=== PATIENT | female | born 1950 | race Caucasian/White ===

== ENCOUNTER 2017-02-01 10:30 | Observation (INO) | payer MEDICARE, OTHER ==
[~2017-02-01] VITALS: Ht 172.7 cm; Wt 129.8 kg
[~2017-02-01 10:30] MED LIST: ALPR1T PO; BUME2TAB3; CHOL50003; DULA0.75 SQ; EXEN10PE4; FLUO60TA PO; GLIM2TAB; GLIM4TAB PO; INSU100I29 SQ; KCL10CCR; LEVO175T5 PO; LEVO1CAP11 PO; LOSA100T16; LOSA1TAB70 PO; LVT.15T; MELO-195; NF-ESOM40C; PIOG1TAB2; VALA1000 PO; VNL75CCR; ZLP10T PO
[2017-02-01] MEDS ORDERED: ASPIRIN 81 MG CHEW (CHILDREN'S ASA) PO ONE (10:45)
--- NOTE | 2017-02-01 10:48 | ED Chest Pain ---
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 Nursing Sepsis Screen: No Definite Risk Source: patient History of Present Illness Time seen by provider: 10:30 Initial Comments PT ARRIVES VIA POV FROM WORK C/O "CHEST PAIN" WHICH BEGAN 15 MINUTES AGO WHILE SITTING AT WORK, AND IS DECREASING ON ARRIVAL TO ER PAIN IS IN RIGHT MID AND LOWER CHEST AND EPIGASTRIC/LOWER STERNAL AREA AND RADIATES STRAIGHT THROUGH TO BACK AND ANTERIOR NECK AND BOTH JAWS WITH SEVERE ACHING NO SHORTNESS OF BREATH NO SWEATS NO PALPITATIONS NO SWELLING IN LEGS/ FEET OR PAIN IN CALVES HAS BEEN A LITTLE DIZZY FOR THE LAST COUPLE OF DAYS NO HISTORY OF SIMILAR PT HAD SURGERY 2 WEEKS AGO TO HAVE LAP BAND REMOVED BY DR. SNYDER IN PCP: DR. CRESPO Allergies and Home Medications Allergies Coded Allergies: amoxicillin (Verified Adverse Reaction, Unknown, 05/11/16) GIVES DIARRHEA Home Medications Dulaglutide 0.75 Mg/0.5 Ml Pen.injctr, 0.75 MG SQ WEEK, (Reported) take on Monday Fluoxetine HCl 60 Mg Tablet, 60 MG PO DAILY, (Reported) Glimepiride 4 Mg Tablet, 4 MG PO DAILY, (Reported) Insulin Detemir 100 Unit/1 Ml Insuln.pen, 70 UNIT SQ BID, (Reported) Levomefolate/B6/B12/Algal Oil 1 Each Capsule, 1 EACH PO BID, (Reported) Levothyroxine Sodium 175 Mcg Tablet, 175 MCG PO DAILY, (Reported) Losartan/Hydrochlorothiazide 1 Each Tablet, 1 EACH PO DAILY, (Reported) Valacyclovir HCl 1,000 Mg Tablet, 1,000 MG PO TIDAC, (Reported) take for 7 days Zolpidem Tartrate 10 Mg Tablet, 10 MG PO HS, (Reported) Review of Systems Constitutional: no symptoms reported Respiratory: No Symptoms Reported Cardiovascular: See HPI, Chest Pain Gastrointestinal: See HPI, Denies Nausea, Denies Vomiting Genitourinary: No Symptoms Reported Musculoskeletal: see HPI, back pain Skin: no symptoms reported Psychiatric/Neurological: No Symptoms Reported Endocrine: No Symptoms Reported Hematologic/Lymphatic: No Symptoms Reported Past Sdgajfn-Rdxvdx-Qtmytb Hx Patient Social History Alcohol Use: Occasionally Uses Recreational Drug Use: No Smoking Status: Former Smoker (1/2 PPD, QUIT 25 YEARS AGO) Recent Foreign Travel: No Contact w/Someone Who Travel: No Recent Infectious Disease Expo: No Recent Hopitalizations: Yes (LAP BAND REMOVAL X2 WEEKS AGO) Immunizations Up To Date Date of Influenza Vaccine: Jul 26, 2011 Surgeries HX Surgeries: Yes (D&C, LAP BAND WITH LATER REMOVAL 12/2016, BIILATERAL CARPAL TUNNEL RELEASE; FOOT SURGERY; HYST /BSO, foot sx, ) Surgeries: Gallbladder, Hysterectomy, Oophorectomy Respiratory Hx Respiratory Disorders: No Cardiovascular Hx Cardiac Disorders: Yes Cardiac Disorders: Hypertension Neurological Hx Neurological Disorders: Yes Neurological Disorders: Neuropathy Reproductive System Hx Reproductive Disorders: Yes (UTERINE CANCER -S/P HYST/BSO) Sexually Transmitted Disease: No Genitourinary Hx Genitourinary Disorders: No Gastrointestinal Hx Gastrointestinal Disorders: No Musculoskeletal Hx Musculoskeletal Disorders: Yes (arthritis, neuropathy) Endocrine Hx Endocrine Disorders: Yes Endocrine Disorders: Diabetes, Insulin dep, Hypothyroidsim HEENT HX ENT Disorders: No Cancer Hx Cancer: Yes (UTERINE CANCER 15 YEARS AGO--S/P HYST/BSO, NO CHEMO OR RADIATION) Cancer: Uterine Psychosocial Hx Psychiatric Problems: Yes Behavioral Health Disorders: Anxiety, Depression Blood Transfusions Hx Blood Disorders: No Physical Exam Vital Signs Vital Sign - Last 12Hours 02/01/17 10:36 Temp 98.0 Pulse 93 Resp 16 B/P (MAP) 144/62 Pulse Ox 99 Capillary Refill : Less Than 3 Seconds General Appearance: No Apparent Distress, WD/WN, Obese HEENT: PERRL/EOMI Neck: Full Range of Motion, Normal Inspection, Non Tender, Supple, No Carotid Bruit, No JVD Respiratory: Normal Breath Sounds, No Accessory Muscle Use, No Respiratory Distress Cardiovascular: Regular Rate, Rhythm, No Edema, No JVD, No Murmur, Normal Peripheral Pulses Gastrointestinal: Normal Bowel Sounds, No Organomegaly, No Pulsatile Mass, Soft , Mass (TO RIGHT MID/UPPER ABDOMEN-MILDLY TENDER), Tenderness (MILD EPIGASTRIC/ LOWER STERNAL TENDERNESS) Extremity: Normal Capillary Refill, Normal Range of Motion, Non Tender, No Calf Tenderness, No Pedal Edema Neurologic/Psychiatric: Alert, Oriented x3, No Motor/Sensory Deficits, Normal 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, 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 Skin: Normal Color, Warm/Dry, Other (FIRST DEGREE SUNBURN TO ANTERIOR ASPECT OF LOWER LEGS, TO UPPER CHEST AND TO FACE) Progress/Results/Core Measures Results/Orders Lab Results Laboratory Tests Test 02/01/17 10:51 Range/Units White Blood Count 10.8 4.3-11.0 10^3/uL Red Blood Count 4.37 4.35-5.85 10^6/uL Hemoglobin 12.8 11.5-16.0 G/DL Hematocrit 39 35-52 % Mean Corpuscular Volume 90 80-99 FL Mean Corpuscular Hemoglobin 29 25-34 PG Mean Corpuscular Hemoglobin Concent 33 32-36 G/DL Red Cell Distribution Width 15.6 H 10.0-14.5 % Platelet Count 358 130-400 10^3/uL Mean Platelet Volume 10.4 7.4-10.4 FL Neutrophils (%) (Auto) 69 42-75 % Lymphocytes (%) (Auto) 20 12-44 % Monocytes (%) (Auto) 6 0-12 % Eosinophils (%) (Auto) 4 0-10 % Basophils (%) (Auto) 1 0-10 % Neutrophils # (Auto) 7.4 1.8-7.8 X 10^3 Lymphocytes # (Auto) 2.2 1.0-4.0 X 10^3 Monocytes # (Auto) 0.6 0.0-1.0 X 10^3 Eosinophils # (Auto) 0.5 H 0.0-0.3 10^3/uL Basophils # (Auto) 0.1 0.0-0.1 10^3/uL Prothrombin Time 13.3 12.2-14.7 SEC INR Comment 1.0 0.8-1.4 Activated Partial Thromboplast Time 26 24-35 SEC Sodium Level 140 135-145 MMOL/L Potassium Level 3.5 L 3.6-5.0 MMOL/L Chloride Level 105 98-107 MMOL/L Carbon Dioxide Level 26 21-32 MMOL/L Anion Gap 9 5-14 MMOL/L Blood Urea Nitrogen 14 7-18 MG/DL Creatinine 1.00 0.60-1.30 MG/DL Estimat Glomerular Filtration Rate 55 BUN/Creatinine Ratio 14 Glucose Level 254 H 70-105 MG/DL Calcium Level 8.8 8.5-10.1 MG/DL Magnesium Level 2.1 1.8-2.4 MG/DL Total Bilirubin 0.4 0.1-1.0 MG/DL Aspartate Amino Transf (AST/SGOT) 19 5-34 U/L Alanine Aminotransferase (ALT/SGPT) 23 0-55 U/L Alkaline Phosphatase 102 40-136 U/L Total Creatine Kinase 98 29-168 U/L Creatine Kinase MB 3.0 <6.6 NG/ML Troponin I < 0.30 <0.30 NG/ML B-Type Natriuretic Peptide < 10.0 <100.0 PG/ML Total Protein 6.9 6.4-8.2 G/DL Albumin 3.6 3.2-4.5 G/DL Amylase Level 33 25-125 U/L Lipase 22 8-78 U/L My Orders Orders - DEMETRIS ERICKSON DO Amylase (02/01/17 10:33) Cbc With Automated Diff (02/01/17 10:33) Comprehensive Metabolic Panel (02/01/17 10:33) Creatine Kinase (02/01/17 10:33) Creatine Kinase Mb (02/01/17 10:33) Lipase (02/01/17 10:33) Partial Thromboplastin Time (02/01/17 10:33) Protime With Inr (02/01/17 10:33) Troponin I (02/01/17 10:33) Chest 1 View, Ap/Pa Only (02/01/17 10:33) O2 (02/01/17 10:33) Ekg Tracing (02/01/17 10:33) Aspirin Chewable Tablet (Baby Aspirin Ch (02/01/17 10:45) Rx-Nitroglycerin Sl Tabs (Rx-Nitrostat S (02/01/17 10:45) BNP (02/01/17 10:33) Monitor-Rhythm Ecg Trace Only (02/01/17 10:33) Magnesium (02/01/17 10:41) Ct Angio Chest W (02/01/17 11:36) Iohexol Injection (Omnipaque 350 Mg/Ml 1 (02/01/17 11:45) Sodium Chloride Flush (Catheter Flush Sy (02/01/17 11:45) Ns (Ivpb) (Sodium Chloride 0.9% Ivpb Bag (02/01/17 11:45) Medications Given in ED Current Medications Medications Dose Ordered Sig/Claire Route Start Time Stop Time Status Last Admin Dose Admin Aspirin 324 mg ONCE ONCE PO 02/01/17 10:45 02/01/17 10:46 DC 02/01/17 10:50 324 MG Iohexol 125 ml ONCE ONCE IV 02/01/17 11:45 02/01/17 11:47 DC 02/01/17 11:53 125 ML Sodium Chloride 100 ml ONCE ONCE IV 02/01/17 11:45 02/01/17 11:47 DC 02/01/17 11:54 80 ML Vital Signs/I&O Vital Sign - Last 12Hours 02/01/17 10:36 Temp 98.0 Pulse 93 Resp 16 B/P (MAP) 144/62 Pulse Ox 99 Blood Pressure Mean: 89 Progress Note : Progress Note PAIN-FREE SHORTLY AFTER ARRIVAL REMAINED PAIN -FREE FOR 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 OR ACUTE PROCESS--PER RADIOLOGIST REPORT @ 1245 Reviewed: Reviewed by Me Departure Communication Progress Notes 1252--SPOKE WITH DR. NOVOA, ACCEPTS PT FOR ADMIT 1254--SPOKE WITH DR. CANELA, FOR CARDIOLOGY CONSULT. ADVISES [facility]. Impression Impression: Primary Impression: Chest pain Disposition: ADMITTED INPATIENT Condition: Improved Decision to Admit Reason: Admit from ER (General) Decision to Admit/Date: February 01, 2017 Time/Decision to Admit Time: 12:55 Departure-Patient Inst. Referrals: INDIRA CRESPO MD (PCP/Family) Primary Care Physician DEMETRIS ERICKSON DO February 01, 2017 10:48
[2017-02-01] MEDS: RX-NITROGLYCERIN 0.4 MG TAB BTL 25'S SL PRN ×2 (10:56→13:16)
[2017-02-01 11:00] LABS: BASOPHILS # (AUTO) 0.1 10^3/uL (0.0-0.1); BASOPHILS % (AUTO) 1 % (0-10); EOSINOPHILS # (AUTO) 0.5 10^3/uL (0.0-0.3); EOSINOPHILS % (AUTO) 4 % (0-10); LYMPHOCYTES # (AUTO) 2.2 X 10^3 (1.0-4.0); LYMPHOCYTES % (AUTO) 20 % (12-44); MEAN CORPUSCULAR HEMOGLOBIN 29 PG (25-34); MEAN CORPUSCULAR HGB CONC 33 G/DL (32-36); MEAN CORPUSCULAR VOLUME 90 FL (80-99); MEAN PLATELET VOLUME 10.4 FL (7.4-10.4); MONOCYTES # (AUTO) 0.6 X 10^3 (0.0-1.0); MONOCYTES % (AUTO) 6 % (0-12); NEUTROPHILS # (AUTO) 7.4 X 10^3 (1.8-7.8); NEUTROPHILS % (AUTO) 69 % (42-75); PLATELET COUNT 358 10^3/uL (130-400); RED BLOOD COUNT 4.37 10^6/uL (4.35-5.85); RED CELL DISTRIBUTION WIDTH 15.6 % (10.0-14.5); WHITE BLOOD COUNT 10.8 10^3/uL (4.3-11.0)
--- NOTE | 2017-02-01 11:08 | Diagnostic Imaging Report ---
EXAMINATION: Portable upright radiograph of the chest. INDICATION: Chest pain and dizziness. FINDINGS: The lungs are clear. The heart size is normal. No effusion or pneumothorax. The mediastinum and gregorio appear unremarkable. IMPRESSION: Unremarkable exam. Dictated by: Dictated on workstation # [id number]
[2017-02-01 11:14] LABS: PROTHROMBIN TIME PATIENT 13.3 SEC (12.2-14.7)
[2017-02-01 11:22] LABS: ALANINE AMINOTRANSFERASE 23 U/L (0-55); ALBUMIN 3.6 G/DL (3.2-4.5); AMYLASE 33 U/L (25-125); ANION GAP 9 MMOL/L (5-14); ASPARTATE AMINO TRANSFERASE 19 U/L (5-34); BILIRUBIN,TOTAL 0.4 MG/DL (0.1-1.0); BLOOD UREA NITROGEN 14 MG/DL (7-18); BUN/CREATININE RATIO 14; CALCIUM 8.8 MG/DL (8.5-10.1); CARBON DIOXIDE 26 MMOL/L (21-32); CHLORIDE 105 MMOL/L (98-107); CREATINE KINASE 98 U/L (29-168); GFR ESTIMATED 55; GLUCOSE 254 MG/DL (70-105); LIPASE 22 U/L (8-78); MAGNESIUM 2.1 MG/DL (1.8-2.4); POTASSIUM 3.5 MMOL/L (3.6-5.0); SODIUM 140 MMOL/L (135-145); TOTAL PROTEIN 6.9 G/DL (6.4-8.2)
[2017-02-01 11:29] LABS: TROPONIN I < 0.30 NG/ML (<0.30)
[2017-02-01] MEDS ORDERED: CATHETER FLUSH 10 ML SYR IV PRN ×2 (11:45→14:45)
[2017-02-01] MEDS ORDERED: NS 100 ML (IVPB) BAG IV ONE (11:45)
[2017-02-01] MEDS ORDERED: IOHEXOL 350 MG/ML 150 ML (OMNIPAQUE 350) VIAL IV ONE (11:45)
--- NOTE | 2017-02-01 12:34 | Diagnostic Imaging Report ---
PROCEDURE: CT angiography of the chest with contrast. TECHNIQUE: Multiple contiguous axial images were obtained through the chest after uneventful bolus administration of intravenous contrast. Reconstructed CTA MIP acquisitions were also performed. INDICATION: Chest pain. Status post removal of the gastric band. 125 mL of Omnipaque 350 is administered intravenously. Findings: There is a good opacification of the pulmonary arteries with no filling defects to suggest pulmonary embolism. The thoracic aorta is normal in caliber. No aortic dissection. The heart size is normal. No pericardial or pleural effusion. Borderline sized right paratracheal 1 cm lymph node is seen. No significantly enlarged hilar or axillary lymph nodes seen. The lungs demonstrate mild scarring in the left infrahilar region with punctate calcifications likely secondary to an old infection with no significant consolidation, mass or suspicious nodule seen otherwise. In the anterior abdominal wall within the upper abdomen to the right of the midline there is a 4.4 x 4.1 cm fluid collection containing a bubble of gas seen. This could potentially be a postoperative seroma, or in the appropriate clinical setting an abscess could be considered. The osseous structures demonstrate flowing syndesmophytes in the thoracic spine. IMPRESSION: 1. No PE or aortic dissection. 2. Subcutaneous fluid collection measuring 4.4 CM to the right of the midline in the anterior abdominal wall with a bubble of gas seen. This could be postoperative seroma or abscess. Correlate clinically. Dictated by: Dictated on workstation # [id number]
[2017-02-01] MEDS ORDERED: ENOXAPARIN 60 MG/0.6 ML (LOVENOX) SYR SC ONE (13:15)
[2017-02-01] MEDS ORDERED: TOPI200T8 PO (14:28)
[2017-02-01] MEDS ORDERED: PREG150C PO (14:28)
[2017-02-01] MEDS ORDERED: DULO60CA58 PO (14:28)
[2017-02-01] MEDS ORDERED: ZOLP10TA5 PO (14:28)
[2017-02-01] MEDS ORDERED: LEVO175T2 PO (14:28)
[2017-02-01] MEDS ORDERED: INSU200I4 SQ (14:28)
[2017-02-01] MEDS ORDERED: morphine INJ 4 MG/ML 1 ML (VIAL/SYRINGE) IV PRN (14:45)
[2017-02-01] MEDS ORDERED: NITROGLYCERIN SUBLINGUAL 0.4 MG TAB (NITROSTAT) SL PRN (14:45)
[2017-02-01 16:00] VITALS: BP 116/53
[2017-02-01 19:29] VITALS: BP 123/56
[2017-02-01] MEDS: DULoxetine 30 MG (CYMBALTA) CAP PO SCH (20:09)
[2017-02-01] MEDS: PREGABALIN 75 MG (LYRICA) CAP PO SCH (20:09)
[2017-02-01] MEDS: toPIRamate 100 MG (TOPAMAX) TAB PO SCH (20:09)
[2017-02-01] MEDS: ZOLPIDEM 5 MG (AMBIEN) TAB PO SCH (20:09)
[2017-02-01] MEDS: CATHETER FLUSH 10 ML SYR IV SCH (20:14)
[2017-02-01] MEDS ORDERED: NON-FORMULARY MEDICATION 1 EA EA (Pregabalin (Lyrica) 150 MG) PO SCH (21:00)
[2017-02-01] MEDS ORDERED: NON-FORMULARY MEDICATION 1 EA EA (Duloxetine HCl 60 MG) PO SCH (21:00)
[2017-02-01] MEDS ORDERED: NON-FORMULARY MEDICATION 1 EA EA (Topiramate 200 MG) PO SCH (21:00)
[2017-02-01] MEDS ORDERED: NON-FORMULARY MEDICATION 1 EA EA (Zolpidem Tartrate 10 MG) PO SCH (21:00)
[2017-02-01] MEDS: inSUlin ASPART (NovoLOG) 1 UNIT/0.01 ML (CHARGE PER UNIT) SC SCH (21:07)
--- NOTE | 2017-02-01 23:16 | Consultation-Cardiology ---
HPI-Cardiology Cardiology Consultation: Date of Consultation 02/01/17 Date of Admission Attending Physician Heath Burton MD Admitting Physician Heath Burton MD Consulting Physician Selene FABIAN MD HPI: Chief Complaint: chest pain This is a 66 year old lady with history of diabetes who presents with chest pain with radiation to the jaw. she denies any shortness of breath. Review of Systems-Cardiology Review of Systems Constitutional: No As described under HPI, No no symptoms reported, No chills, No fever, No lightheadedness, No malaise, No tiredness, No weight loss, No weight gain, No other Eyes: No As described under HPI, No no symptoms reported, No blindness, No blurred vision, No contact lenses, No drainage, No decreased acuity, No foreign body sensation, No glasses, No inflammation, No pain, No photophobia, No previous injury, No shadows, No tunnel vision, No other, No vision change Ears/Nose/Throat: No As described under HPI, No no symptoms reported, No chronic hearing loss, No epistaxis, No ear discharge, No ear pain, No loose teeth, No mouth pain, No mouth swelling, No nasal drainage, No nose pain, No recent hearing loss, No throat pain, No throat swelling, No ulcerations, No other Respiratory: No no symptoms reported, No As described under HPI, No cough, No orthopnea, No shortness of breath, No SOB with excertion, No SOB at rest, No stridor, No wheezing, No other Cardiovascular: chest pain Gastrointestinal: No no symptoms reported, No As described under HPI, No abdomen distended, No abdominal pain, No blood streaked bowels, No constipation , No diarrhea, No difficulty swallowing, No nausea, No poor appetite, No poor fluid intake, No rectal bleeding, No vomiting, No other, No nausea/vomiting/ diarrhea, No stool coloration changes Genitourinary: No no symptoms reported, No As described under HPI, No burning, No dysuria, No discharge, No frequency, No flank pain, No hematuria, No incontinence, No pain, No urgency, No other, No urine frequency changes, No urine coloration changes Musculoskeletal: No no symptoms reported, No As describe under HPI, No back pain, No gout, No joint pain, No joint swelling, No muscle pain, No muscle stiffness, No neck pain, No other Skin: No no symptoms reported, No As described under HPI, No change in color, No change in hair/nails, No dryness, No lesions, No lumps, No rash, No other, No skin related problems, No ulcerations, No rash on exposed areas, No ulcerations on exposed areas Psychiatric/Neurological: No As described under HPI, No anxiety, No depression , No emotional problems, No focal weakness, No headache, No no symptoms reported , No numbness, No other, No pre-existing deficit, No seizure, No syncope, No tingling, No tremors, No weakness Hematologic: No no symptoms reported, No As described under HPI, No anemia, No blood clots, No easy bleeding, No easy bruising, No swollen glands, No other, No bleeding abnormalities NST-Arphvd-Dvynql Hx Patient Social History Alcohol Use: Occasionally Uses Recreational Drug Use: No Smoking Status: Former Smoker Type Used: Cigarettes Recent Foreign Travel: No Recent Infectious Disease Expo: No Physical Abuse Screen: No Sexual Abuse: No Immunizations Up To Date Date of Pneumonia Vaccine: Aug 25, 2010 Date of Influenza Vaccine: Jul 26, 2011 Past Medical History PMH As described under Assessment. Family Medical History Family History: Patient reports no known family medical history. Allergies and Home Medications Allergies Coded Allergies: amoxicillin (Verified Adverse Reaction, Unknown, 02/01/17) GIVES DIARRHEA Home Medications Duloxetine HCl 60 Mg Capsule.dr, 60 MG PO BID, (Reported) LAST FILLED 08/22/16 #180 Glimepiride 4 Mg Tablet, 4 MG PO DAILY, (Reported) Insulin Degludec 200 Unit/1 Ml Insuln.pen, 100 UNITS SQ HS, (Reported) Levomefolate/B6/B12/Algal Oil 1 Each Capsule, 1 TAB PO DAILY, (Reported) Levothyroxine Sodium 175 Mcg Tablet, 175 MCG PO DAILY, (Reported) Losartan/Hydrochlorothiazide 1 Each Tablet, 1 TAB PO DAILY, (Reported) Pregabalin 150 Mg Capsule, 150 MG PO BID, (Reported) Topiramate 200 Mg Tablet, 200 MG PO BID, (Reported) LAST FILLED 08/17/16 #180 Zolpidem Tartrate 10 Mg Tablet, 10 MG PO HS, (Reported) Physical Exam-Cardiology Physical Exam Vital Signs/I&O Vital Sign - Last 12Hours 02/01/17 02/01/17 02/01/17 02/01/17 13:25 16:00 19:00 19:29 Temp 97.6 97.1 Pulse 87 80 84 82 Resp 16 18 18 B/P (MAP) 116/53 123/56 Pulse Ox 98 80 95 O2 Delivery Room Air Room Air Capillary Refill : Less Than 3 Seconds Constitutional: No appears stated age, No AAO x 3, No apparent distress, No PERRL, No well-developed, No well-nourished, No other HEENT: No PERRL, No normal ENT inspection, No TMs normal, No pharynx normal, No scleral icterus (R), No scleral icterus (L), No pale conjunctivae (R), No pale conjunctivae (L), No photophobia, No TM abnormal (R), No TM abnormal (L), No pharyngeal erythema, No tonsillar exudate, No other, No discharge, No EOMI, No hearing is well preserved, No hard of hearing, No oral hygience is good, No ulceration, No xanthelasmas are seen Neck: No non-tender, No full range of motion, No supple, No normal inspection, No carotid bruit, No limited range of motion, No lymphadenopathy (R), No lymphadenopathy (L), No tender lateral, No tender midline, No thyromegaly, No other, No carotid pulses are 2 + bilaterally, No with good upstrokes Respiratory: No accessory muscle use, No respiratory distress, No chest tender , No chest expansion is symmetric, No chest is bilaterally symmetric, No lungs clear to percussion, No lungs clear to auscultation, No crackles, No rhonchi, No rales, No stridor, No wheezing, No pleural rub, No other Cardiovascular: No regular rate-rhythm, No irregularly irregular, No extra beats, No parasternal heave is noted, No JVD, No edema, No bradycardia, No tachycardia, No point of maximal impulse, No cardiac thrills are palpable, No S1 and S2, No gallop/S3, No gallop/S4, No diastolic murmur, No systolic murmur, No friction rub, No click, No other Gastrointestinal: No tender, No soft, No round, No distended, No pulsatile mass , No organomegaly, No guarding, No rebound, No tenderness, No hernia, No mass, No audible bowel sounds, No abnormal bowel sounds, No abdominal bruits, No spleenomegaly, No other Rectal: deferred Extremities: No normal range of motion, No non-tender, No normal inspection, No pedal edema, No calf tenderness, No normal capillary refill, No pelvis stable , No calf tenderness, No inflammation, No pedal edema, No slow capillary refill , No swelling, No other, No abrasion, No clubbing, No cyanosis, No ecchymosis, No laceration, No no lower extremity edema bilateral, No significant edema, No tenderness, No wound Neurologic/Psychiatric: No pulp mixer II-XII nml as tested, No no motor/sensory deficits, No alert, No normal mood/affect, No oriented x 3, No abnormal cerebellar tests, No abnormal pulp mixer II-XII, No abnormal gait, No aphasia, No EOM palsy, No facial droop, No motor weakness, No sensory deficit, No depressed affect, No disoriented x 3, No other, No grossly intact, No power is 5/5 both on sides Data Review Labs Laboratory Tests 02/01/17 10:51: White Blood Count 10.8, Red Blood Count 4.37, Hemoglobin 12.8, Hematocrit 39, Mean Corpuscular Volume 90, Mean Corpuscular Hemoglobin 29, Mean Corpuscular Hemoglobin Concent 33, Red Cell Distribution Width 15.6H, Platelet Count 358, Mean Platelet Volume 10.4, Neutrophils (%) (Auto) 69, Lymphocytes (%) (Auto) 20 , Monocytes (%) (Auto) 6, Eosinophils (%) (Auto) 4, Basophils (%) (Auto) 1, Neutrophils # (Auto) 7.4, Lymphocytes # (Auto) 2.2, Monocytes # (Auto) 0.6, Eosinophils # (Auto) 0.5H, Basophils # (Auto) 0.1, Prothrombin Time 13.3, INR Comment 1.0, Activated Partial Thromboplast Time 26, Sodium Level 140, Potassium Level 3.5L, Chloride Level 105, Carbon Dioxide Level 26, Anion Gap 9, Blood Urea Nitrogen 14, Creatinine 1.00, Estimat Glomerular Filtration Rate 55, BUN/Creatinine Ratio 14, Glucose Level 254H, Calcium Level 8.8, Magnesium Level 2.1, Total Bilirubin 0.4, Aspartate Amino Transf (AST/SGOT) 19, Alanine Aminotransferase (ALT/SGPT) 23, Alkaline Phosphatase 102, Total Creatine Kinase 98, Creatine Kinase MB 3.0, Troponin I < 0.30, B-Type Natriuretic Peptide < 10.0 , Total Protein 6.9, Albumin 3.6, Amylase Level 33, Lipase 22 02/01/17 14:50: Troponin I < 0.30 02/01/17 16:23: Glucometer 199H 02/01/17 21:00: Glucometer 230H 02/01/17 21:02: Troponin I < 0.30 ECG Impression ECG Initial ECG Rhythm: Normal Sinus Initial ECG Impression: Normal A/P-Cardiology Assessment/Admission Diagnosis Chest pain, Diabetes Plan Acute coronary syndrome has been ruled out with serial negative troponin. EKG did not show any acute ST-T wave changes. Plan to perform Echocardiogram and Nuclear stress test tomorrow. Diabetes- defer to primary team. Thank you for your consultation. Please call me if you have any questions. Kirby Fabian MD, FACP, FACC, FSCAI, FHRS, CCDS Interventional Cardiology Cardiac Electrophysiology Vascular Medicine and Endovascular Interventions Clinical Quality Measures AMI/AHF: ASA po Prior to arrival: No DVT/VTE Risk/Contraindication: Risk Factor Score Per Nursin RFS Level Per Nursing on Admit: 3=High Selene FABIAN MD February 01, 2017 23:16
[2017-02-02] VITALS (7 sets, daily range): BP systolic 107–152; BP diastolic 45–81
[2017-02-02] MEDS: ENOXAPARIN 300 MG/3 ML (LOVENOX) MULTI-DOSE VIAL SQ SCH ×2 (01:00→15:00)
[2017-02-02] MEDS: inSUlin ASPART (NovoLOG) 1 UNIT/0.01 ML (CHARGE PER UNIT) SC SCH ×4 (05:55→20:16)
[2017-02-02] MEDS: CATHETER FLUSH 10 ML SYR IV SCH ×2 (05:57→15:00)
[2017-02-02 06:01] LABS: BASOPHILS # (AUTO) 0.1 10^3/uL (0.0-0.1); BASOPHILS % (AUTO) 1 % (0-10); EOSINOPHILS # (AUTO) 0.5 10^3/uL (0.0-0.3); EOSINOPHILS % (AUTO) 6 % (0-10); LYMPHOCYTES # (AUTO) 2.3 X 10^3 (1.0-4.0); LYMPHOCYTES % (AUTO) 32 % (12-44); MEAN CORPUSCULAR HEMOGLOBIN 29 PG (25-34); MEAN CORPUSCULAR HGB CONC 32 G/DL (32-36); MEAN CORPUSCULAR VOLUME 90 FL (80-99); MEAN PLATELET VOLUME 10.4 FL (7.4-10.4); MONOCYTES # (AUTO) 0.7 X 10^3 (0.0-1.0); MONOCYTES % (AUTO) 10 % (0-12); NEUTROPHILS # (AUTO) 3.8 X 10^3 (1.8-7.8); NEUTROPHILS % (AUTO) 51 % (42-75); PLATELET COUNT 332 10^3/uL (130-400); RED BLOOD COUNT 4.14 10^6/uL (4.35-5.85); RED CELL DISTRIBUTION WIDTH 15.6 % (10.0-14.5); WHITE BLOOD COUNT 7.3 10^3/uL (4.3-11.0)
[2017-02-02 06:27] LABS: ALANINE AMINOTRANSFERASE 20 U/L (0-55); ALBUMIN 3.4 G/DL (3.2-4.5); ANION GAP 11 MMOL/L (5-14); ASPARTATE AMINO TRANSFERASE 15 U/L (5-34); BILIRUBIN,TOTAL 0.3 MG/DL (0.1-1.0); BLOOD UREA NITROGEN 15 MG/DL (7-18); BUN/CREATININE RATIO 18; CALCIUM 8.8 MG/DL (8.5-10.1); CARBON DIOXIDE 23 MMOL/L (21-32); CHLORIDE 109 MMOL/L (98-107); CHOLESTEROL 136 MG/DL (< 200); CREATININE SERUM 0.82 MG/DL (0.60-1.30); DIRECT LDL 82 MG/DL (1-129); GFR ESTIMATED > 60; GLUCOSE 140 MG/DL (70-105); POTASSIUM 3.2 MMOL/L (3.6-5.0); SODIUM 143 MMOL/L (135-145); TOTAL PROTEIN 6.5 G/DL (6.4-8.2); TRIGLYCERIDES 133 MG/DL (<150); VLDL CHOLESTEROL 27 MG/DL (5-40)
[2017-02-02] MEDS ORDERED: LEVOTHYROXINE 75 MCG (LEVOTHROID) TABLET PO SCH (06:30)
[2017-02-02] MEDS ORDERED: LEVOTHYROXINE 100 MCG (LEVOTHROID) TAB PO SCH (06:30)
[2017-02-02] MEDS: toPIRamate 100 MG (TOPAMAX) TAB PO SCH ×2 (08:09→20:16)
[2017-02-02] MEDS: PREGABALIN 75 MG (LYRICA) CAP PO SCH ×2 (08:09→20:16)
[2017-02-02] MEDS: DULoxetine 30 MG (CYMBALTA) CAP PO SCH ×2 (08:10→20:15)
--- NOTE | 2017-02-02 08:33 | History & Physical-Hospitalist ---
HPI History of Present Illness: HPI/Chief Complaint Mrs. Wick is a 66-year-old white female who while at work noted the onset of chest discomfort under her right breast which radiated through to her back. She then noted radiation of discomfort up into both jaws. She felt unwell but denied diaphoresis or shortness of breath. All totaled she thinks that her symptoms lasted no more than 5 minutes. She then drove herself to the emergency room because of her jaw discomfort. She has not previously had any similar symptoms to this. She does have risk factors for coronary artery disease including long-standing type II diabetes mellitus and hypertension. She has no known past history of coronary artery disease. 2 weeks ago she underwent lap band removal reporting minimal discomfort but did have port removal just below the site of her chest discomfort in the right upper quadrant of the abdomen. She's had no chills fever and denies any bowel habit change. She been feeling well up until the onset of her symptoms with no increased dyspnea on exertion over baseline or fatigue. She had several day history of dizziness but in questioning her she did run out of Cymbalta. After receiving Cymbalta last night she reports that this dizziness has resolved. Date Seen 02/02/17 Attending Physician Indira Crespo MD PCP Indira Crespo MD Referring Physician Date of Admission February 01, 2017 at 12:55 Home Medications & Allergies Home Medications Reviewed patient Home Medication Reconciliation Form Allergies Allergies Coded Allergies amoxicillin (Verified Adverse Reaction, Unknown, 02/01/17) GIVES DIARRHEA Past Zogcpbc-Mmnbeb-Wtollx Hx Patient Social History Alcohol Use: Occasionally Uses Recreational Drug Use: No Smoking Status: Former Smoker Type Used: Cigarettes Physical Abuse Screen: No Sexual Abuse: No Recent Foreign Travel: No Contact w/other who traveled: No Recent Hopitalizations: Yes (LAP BAND REMOVAL X2 WEEKS AGO) Recent Infectious Disease Expo: No Immunizations Up To Date Date of Pneumonia Vaccine: Aug 25, 2010 Date of Influenza Vaccine: Jul 26, 2011 Surgeries HX Surgeries: Yes (D&C, LAP BAND WITH LATER REMOVAL 12/2016, BIILATERAL CARPAL TUNNEL RELEASE; FOOT SURGERY; HYST /BSO, foot sx, ) Surgeries: Gallbladder, Hysterectomy, Oophorectomy Respiratory Hx Respiratory Disorders: No Cardiovascular Hx Cardiovascular Disorders: Yes Cardiac Disorders: Hypertension Neurological Hx Neurological Disorders: Yes Neurological Disorders: Neuropathy Reproductive System Hx Reproductive Disorders: Yes (UTERINE CANCER -S/P HYST/BSO) Sexually Transmitted Disease: No Genitourinary Hx Genitourinary Disorders: No Gastrointestinal Hx Gastrointestinal Disorders: No Musculoskeletal Hx Musculoskeletal Disorders: Yes (arthritis, neuropathy) Endocrine Hx Endocrine Disorders: Yes Endocrine Disorders: Diabetes, Insulin dep, Hypothyroidsim HEENT HX ENT Disorders: No Cancer Hx Cancer: Yes (UTERINE CANCER 15 YEARS AGO--S/P HYST/BSO, NO CHEMO OR RADIATION) Cancer: Uterine Psychosocial Hx Psychiatric Problems: Yes Behavioral Health Disorders: Anxiety, Depression Blood Transfusions Hx Blood Disorders: No Family Medical History Family Hx: Patient reports no known family medical history. Review of Systems Constitutional: no symptoms reported, see HPI, No chills, No diaphoresis, No dizziness, No fever, No malaise, No weakness, No weight gain, No weight loss, No other Respiratory: see HPI Cardiovascular: No no symptoms reported, see HPI, chest pain (Predominantly under the right breast), No edema, No Hx of Intervention, No palpitations, No syncope, No vascular heart diseas, No other Gastrointestinal: no symptoms reported, No see HPI, No abdominal pain, No constipation, No diarrhea, No dysphagia, No hematemesis, No heartburn, No loss of appetite, No melena, No nausea, No vomiting Physical Exam Physical Exam Vital Signs Vital Sign - Last 12Hours 02/01/17 02/01/17 10:36 16:00 Temp 98.0 Pulse 93 Resp 16 B/P (MAP) 144/62 Pulse Ox 99 O2 Delivery Room Air Capillary Refill : Less Than 3 Seconds General Appearance: No Apparent Distress, Anxious, Obese Neck: Full Range of Motion, Normal Inspection, Non Tender, Supple Respiratory: Chest Non Tender, Lungs Clear, Normal Breath Sounds, No Accessory Muscle Use, No Respiratory Distress Cardiovascular: Regular Rate, Rhythm, No Edema, No Gallop, No JVD, No Murmur, Normal Peripheral Pulses Gastrointestinal: Normal Bowel Sounds, No Organomegaly, No Pulsatile Mass, Non Tender, Soft Extremity: Normal Capillary Refill, Normal Inspection, Normal Range of Motion, Non Tender, No Calf Tenderness, No Pedal Edema Results Results/Procedures Lab Laboratory Tests 02/02/17 05:45 Assessment/Plan Assessment and Plan 1. Chest and jaw discomfort in an individual with risk factors for coronary artery disease including long-standing type II diabetes mellitus and hypertension. Patient has ruled out for an acute coronary syndrome. She has been scheduled for chemical nuclear medicine stress testing later today. If this is normal discharge will likely follow and will be okay with me. 2. History of depression and diabetic peripheral neuropathy for which the patient was taking Cymbalta but had run out several days ago likely resulting in some withdrawal symptoms which we discussed. These symptoms have resolved after reinitiation of Cymbalta with reasonable control of peripheral neuropathic symptomatology. 3. Type II diabetes mellitus resume oral therapy and continue sliding scale insulin while in the hospital. 4. Hypertension essential under reasonable control resume antihypertensive medication. Clinical Quality Measures AMI/AHF: ASA po Prior to arrival: No DVT/VTE Risk/Contraindication: Risk Factor Score Per Nursin RFS Level Per Nursing on Admit: 3=High INDIRA CRESPO MD February 02, 2017 08:33
[2017-02-02] MEDS ORDERED: HYDROCHLOROTHIAZIDE 25 MG (HCTZ) TAB PO SCH (09:00)
[2017-02-02] MEDS ORDERED: LEVOTHYROXINE SODIUM 175 MCG PO SCH (09:00)
[2017-02-02] MEDS ORDERED: ASPIRIN E.C. 325 MG (ECOTRIN) TABLET PO SCH (09:00)
[2017-02-02] MEDS ORDERED: LOSARTAN 50 MG (COZAAR) TAB PO SCH (09:00)
--- NOTE | 2017-02-02 09:30 | Cardiology Progress Note ---
Cardiology SOAP Progress Note Subjective: no further chest pain Objective: I&O/Vital Signs Vital Sign - Last 12Hours 02/02/17 02/02/17 02/02/17 02/02/17 04:05 07:00 08:30 13:00 Temp 97.4 95.0 Pulse 80 80 78 71 Resp 18 18 B/P (MAP) 126/58 107/56 Pulse Ox 95 95 O2 Delivery Room Air Room Air 02/02/17 13:45 Pulse 104 Resp 19 B/P (MAP) 125/45 Intake and Output 02/02/17 00:00 Intake Total 620 ml Output Total 100 ml Balance 520 ml Weight (Pounds): 286 Weight (Ounces): 3.0 Weight (Calculated Kilograms): 129.223736 Constitutional: No appears stated age, No AAO x 3, No apparent distress, No PERRL, No well-developed, No well-nourished, No other Respiratory: No accessory muscle use, No respiratory distress, No chest tender , No chest expansion is symmetric, No chest is bilaterally symmetric, No lungs clear to percussion, No lungs clear to auscultation, No crackles, No rhonchi, No rales, No stridor, No wheezing, No pleural rub, No other Cardiovascular: No regular rate-rhythm, No irregularly irregular, No extra beats, No parasternal heave is noted, No JVD, No edema, No bradycardia, No tachycardia, No point of maximal impulse, No cardiac thrills are palpable, No S1 and S2, No gallop/S3, No gallop/S4, No diastolic murmur, No systolic murmur, No friction rub, No click, No other Gastrointestional: No tender, No soft, No round, No distended, No pulsatile mass, No organomegaly, No guarding, No rebound, No tenderness, No hernia, No mass, No audible bowel sounds, No abnormal bowel sounds, No abdominal bruits, No spleenomegaly, No other Extremities: No normal range of motion, No non-tender, No normal inspection, No pedal edema, No calf tenderness, No normal capillary refill, No pelvis stable , No calf tenderness, No inflammation, No pedal edema, No slow capillary refill , No swelling, No other, No abrasion, No clubbing, No cyanosis, No ecchymosis, No laceration, No no lower extremity edema bilateral, No significant edema, No tenderness, No wound Neurologic/Psychiatric: No semiconductors wafer breaker II-XII nml as tested, No no motor/sensory deficits, No alert, No normal mood/affect, No oriented x 3, No abnormal cerebellar tests, No abnormal semiconductors wafer breaker II-XII, No abnormal gait, No aphasia, No EOM palsy, No facial droop, No motor weakness, No sensory deficit, No depressed affect, No disoriented x 3, No other, No grossly intact, No power is 5/5 both on sides Results/Procedures: Labs Laboratory Tests 02/01/17 14:50: Troponin I < 0.30 02/01/17 16:23: Glucometer 199H 02/01/17 21:00: Glucometer 230H 02/01/17 21:02: Troponin I < 0.30 02/02/17 05:45: White Blood Count 7.3, Red Blood Count 4.14L, Hemoglobin 12.1, Hematocrit 37, Mean Corpuscular Volume 90, Mean Corpuscular Hemoglobin 29, Mean Corpuscular Hemoglobin Concent 32, Red Cell Distribution Width 15.6H, Platelet Count 332, Mean Platelet Volume 10.4, Neutrophils (%) (Auto) 51, Lymphocytes (%) (Auto) 32 , Monocytes (%) (Auto) 10, Eosinophils (%) (Auto) 6, Basophils (%) (Auto) 1, Neutrophils # (Auto) 3.8, Lymphocytes # (Auto) 2.3, Monocytes # (Auto) 0.7, Eosinophils # (Auto) 0.5H, Basophils # (Auto) 0.1, Sodium Level 143, Potassium Level 3.2L, Chloride Level 109H, Carbon Dioxide Level 23, Anion Gap 11, Blood Urea Nitrogen 15, Creatinine 0.82, Estimat Glomerular Filtration Rate > 60, BUN/ Creatinine Ratio 18, Glucose Level 140H, Calcium Level 8.8, Total Bilirubin 0.3 , Aspartate Amino Transf (AST/SGOT) 15, Alanine Aminotransferase (ALT/SGPT) 20, Alkaline Phosphatase 94, Total Protein 6.5, Albumin 3.4, Triglycerides Level 133 , Cholesterol Level 136, LDL Cholesterol Direct 82, VLDL Cholesterol 27, HDL Cholesterol 33L 02/02/17 05:51: Glucometer 142H 02/02/17 11:14: Glucometer 138H A/P: Assessment/Dx: Chest pain, Diabetes Plan: Acute coronary syndrome has been ruled out with serial negative troponin. EKG did not show any acute ST-T wave changes. Echo pending. Nuclear stress test being done. if positive then coronary angiography. DC if negative. Diabetes- defer to primary team. Thank you for your consultation. Please call me if you have any questions. Kirby Fabian MD, FACP, FACC, FSCAI, FHRS, CCDS Interventional Cardiology Cardiac Electrophysiology Vascular Medicine and Endovascular Interventions Clinical Quality Measures AMI/AHF: ASA po Prior to arrival: Selene Peres MD February 02, 2017 09:30
[2017-02-02] MEDS ORDERED: REGADENOSON 0.4 MG/5 ML SYR (LEXISCAN) IV ONE (13:45)
[2017-02-02] MEDS ORDERED: CLOPIDOGREL 300 MG (PLAVIX) TABLET PO NR (17:45)
[2017-02-02] MEDS: ZOLPIDEM 5 MG (AMBIEN) TAB PO SCH (20:16)
[2017-02-02] MEDS ORDERED: ATOR20TA49 PO (20:23)
[2017-02-02] MEDS ORDERED: CLOP75TA69 PO (20:23)
[2017-02-02] MEDS ORDERED: ASPI-999 PO (20:23)
--- NOTE | 2017-02-03 12:55 | Discharge Summary-Hospitalist ---
Diagnosis/Chief Complaint Date of Admission February 01, 2017 at 12:55 Date of Discharge February 02, 2017 at 20:45 Discharge Date: February 02, 2017 Discharge Diagnosis 1. Chest a noncardiac acute coronary syndrome ruled out.. 2. History of depression and diabetic peripheral neuropathy for which the patient was taking Cymbalta but had run out several days ago likely resulting in some withdrawal symptoms which we discussed. These symptoms have resolved after reinitiation of Cymbalta with reasonable control of peripheral neuropathic symptomatology. 3. Type II diabetes mellitus resume oral therapy and continue sliding scale insulin while in the hospital. 4. Hypertension essential under reasonable control resume antihypertensive medication. Reason Hospital Visit/Course Mrs. Wick is a 66-year-old white female who while at work noted the onset of chest discomfort under her right breast which radiated through to her back. She then noted radiation of discomfort up into both jaws. She felt unwell but denied diaphoresis or shortness of breath. All totaled she thinks that her symptoms lasted no more than 5 minutes. She then drove herself to the emergency room because of her jaw discomfort. She has not previously had any similar symptoms to this. She does have risk factors for coronary artery disease including long-standing type II diabetes mellitus and hypertension. She has no known past history of coronary artery disease. 2 weeks ago she underwent lap band removal reporting minimal discomfort but did have port removal just below the site of her chest discomfort in the right upper quadrant of the abdomen. She's had no chills fever and denies any bowel habit change. She been feeling well up until the onset of her symptoms with no increased dyspnea on exertion over baseline or fatigue. She had several day history of dizziness but in questioning her she did run out of Cymbalta. After receiving Cymbalta last night she reports that this dizziness has resolved. Hospital course: Patient was admitted to cardiac stepdown where serial EKGs and cardiac isoenzymes revealed no evidence for acute coronary syndrome. She will echocardiography which is pending at the time this dictation and underwent nuclear medicine chemical stress testing per Dr. Fabian which was unremarkable. She was subsequent discharged. Patient had been off of high-dose Cymbalta for combination of depression and diabetic peripheral neuropathy. We discussed withdrawal issues and the medications going to be stopped and we'll need to be tapered if she does not want to experience up to several weeks of exacerbations of anxiety and other withdrawal symptoms. Opted to remain on medication and voices understanding. If she persists in having chest symptoms will need to consider EGD for reflux evaluation. Discharge Summary Discharge Physical Examination Allergies: Coded Allergies: amoxicillin (Verified Adverse Reaction, Unknown, 02/01/17) GIVES DIARRHEA Vitals & I&Os Vital Signs Date Time Temp Pulse Resp B/P (MAP) Pulse Ox O2 Delivery O2 Flow Rate FiO2 02/02/17 20:45 76 145/77 98 02/02/17 20:45 20 02/02/17 19:54 96.6 02/02/17 08:30 Room Air Hospital Course Labs (last 24 hrs) Laboratory Tests 02/02/17 15:37: Glucometer 149H Discharge Home Medications: Active Scripts Active Lipitor (Atorvastatin Calcium) 20 Mg Tablet 20 Mg PO DAILY 30 Days Plavix (Clopidogrel Bisulfate) 75 Mg Tablet 75 Mg PO DAILY 30 Days Aspirin 81 Mg Tab.chew 81 Mg PO DAILY 30 Days Reported Duloxetine HCl 60 Mg Capsule.dr 60 Mg PO BID LAST FILLED 08/22/16 #180 Topiramate 200 Mg Tablet 200 Mg PO BID LAST FILLED 08/17/16 #180 Tresiba Flextouch U-200 (Insulin Degludec) 200 Unit/1 Ml Insuln.pen 100 Units SQ HS Zolpidem Tartrate 10 Mg Tablet 10 Mg PO HS Synthroid (Levothyroxine Sodium) 175 Mcg Tablet 175 Mcg PO DAILY Lyrica (Pregabalin) 150 Mg Capsule 150 Mg PO BID Metanx Capsule (Levomefolate/B6/B12/Algal Oil) 1 Each Capsule 1 Tab PO DAILY Losartan-Hctz 100-25 mg Tab (Losartan/Hydrochlorothiazide) 1 Each Tablet 1 Tab PO DAILY Glimepiride 4 Mg Tablet 4 Mg PO DAILY Instructions to patient/family Please see electonic discharge instructions given to patient. Clinical Quality Measures AMI/AHF: ASA po Prior to arrival: No DVT/VTE Risk/Contraindication: Risk Factor Score Per Nursin RFS Level Per Nursing on Admit: 3=High INDIRA CRESPO MD February 03, 2017 12:55
== END 2017-02-02 20:09 | disposition home or self-care (01) ==
LOC: EDUNIT# 10:30 → ER 10:33 → UNDOADMOB 12:55 → ICU 12:55 → 4TH 14:06 → ICU 14:06 → UNDODISOB 02-02 20:45
PROVIDERS: ADMIT Internal Medicine; ATTEND Internal Medicine
DX: R07.9 Chest pain, unspecified (principal); I10 Essential (primary) hypertension; E11.40 Type 2 diabetes mellitus with diabetic neuropathy, unspecified; E66.9 Obesity, unspecified; F32.9 Major depressive disorder, single episode, unspecified; Z79.82 Long term (current) use of aspirin; Z79.84 Long term (current) use of oral hypoglycemic drugs; Z79.4 Long term (current) use of insulin; Z79.02 Long term (current) use of antithrombotics/antiplatelets; Z79.899 Other long term (current) drug therapy; Z90.710 Acquired absence of both cervix and uterus; Z90.722 Acquired absence of ovaries, bilateral; Z98.84 Bariatric surgery status; Z85.42 Personal history of malignant neoplasm of other parts of uterus; Z87.891 Personal history of nicotine dependence
CPT/HCPCS: 36415; 71010; 71275; 78452; 80053; 80061; 82150; 82550; 82553; 82962; 83690; 83735; 83880; 84484; 85025; 85610; 85730; 93005; 93017; 93041; 96372; G0378

== ENCOUNTER 2017-02-06 06:43 | Day surgery (SDC) | payer MEDICARE, OTHER ==
[2017-02-06] VITALS (10 sets, daily range): BP systolic 91–143; BP diastolic 59–86
[~2017-02-06] VITALS: Ht 172.7 cm; Wt 103.9 kg
[~2017-02-06 06:43] MED LIST changes: +ASPI-999 PO; +ATOR20TA49 PO; +CLOP75TA69 PO; +DULO60CA58 PO; +INSU200I4 SQ; +LEVO175T2 PO; +PREG150C PO; +TOPI200T8 PO; +ZOLP10TA5 PO
[2017-02-06] MEDS ORDERED: LIDOCAINE 1% INJ 20 ML (XYLOCAINE) VIAL ONE (06:48)
[2017-02-06] MEDS ORDERED: NS IV 1000 ML 1,000 ML ONE (06:48)
[2017-02-06] MEDS ORDERED: HEParin (CATH LAB) 2,000 ML IV ONE (06:48)
[2017-02-06] MEDS ORDERED: MIDAZOLAM 5 MG/5 ML (VERSED) VIAL ONE (07:22)
[2017-02-06] MEDS ORDERED: fentaNYL INJECTION 100 MCG/2 ML AMP ONE (07:22)
[2017-02-06] MEDS ORDERED: diphenhydrAMINE 50 MG/ML INJ (BENADRYL) ONE (07:22)
--- NOTE | 2017-02-06 07:33 | Cardiac Procedure Note-CS/ASA ---
Pre-Procedure Note Pre-Op Procedure Note H&P Reviewed The H&P was reviewed, patient examined and no changes noted. Date H&P Reviewed: February 06, 2017 Time H&P Reviewed: 07:33 Conscious Sedation Pre-Proced Time Reviewed: 07:33 ASA Class: 3 Airway Mallampati Classification: ([place] appropriate class) I. II. III, IV Lungs Heart ASA score ASA 1: a normal healthy patient ASA 2: a patient with a mild systemic disease (mid diabetes, controlled hypertension, obesity ASA 3: a patient with a severe systemic disease that limits activity (angina , COPD, prior Myocardial infarction) ASA 4: a patient with an incapacitating disease that is a constant threat to life (CHF, renal failure) ASA 5: a moribund patient not expected to survive 24 hrs. (ruptured aneurysm) ASA 6: a declared brain patient whose organs are being harvested. For emergent operations, add the letter E after the classification Grade 1 Sedation Plan: Analgesia, Amnesia, Plan communicated to team members, Discussed options with patient/fam, Discussed risks with patient/fam Note The patient is an appropriate candidate to undergo the planned procedure, sedation, and anesthesia. The patient immediately re-assessed prior to indication. Selene CANELA MD February 06, 2017 7:33 am
[2017-02-06] MEDS ORDERED: NITROGLYCERIN DRIP 25 MG/D5W 250 ML IV ONE (07:43)
[2017-02-06] MEDS ORDERED: VERAPAMIL 5 MG/2 ML (CALAN) VIAL IV ONE (07:43)
[2017-02-06] MEDS ORDERED: HEParin 1000 UNIT/ML (10ML VIAL) FOR BOLUS ONE (07:43)
[2017-02-06] MEDS ORDERED: NS IV 1000 ML 1,000 ML IV SCH ×2 (07:45→09:02)
--- NOTE | 2017-02-06 08:59 | Cardiology Post Procedure Note ---
Post-Procedure Note Post-Op Procedure Note Procedure Start Date: February 06, 2017 Procedure Start Time: 07:45 Name of Procedure: coronary angiography, [facility] Findings/Procedure Note No significant CAD, normal LV function Anesthesia Type: Conscious Sedation Estimated blood loss (mL): 10 ml Contrast Amount: 180 ml Post-Operative Diagnosis Post-operative diagnosis: No significant CAD Selene CANELA MD February 06, 2017 8:59 am
--- NOTE | 2017-02-06 09:05 | Discharge Inst-Post CATH ---
Discharge Inst-CATH Post Cardiac Cath D/C Inst Follow Up/Plan follow up with Dr Fabian in 10 days CARDIAC CATH DISCHARGE INSTRUCTIONS *Hold Metformin for 48 hours post heart cath. ACTIVITY * Go Home directly and rest. * Limit activity of the leg (or wrist if it was used) for 7 days including aerobics, swimming, jogging, bicycling, etc. * Restrict stair-climbing for 7 days if possible, if not, climb up with your non -cath leg, then bring together on the same step. * Avoid lifting, pushing, pulling or excessive movement of the affected extremity for 7 days. * Customary sexual activity may be resumed after 2 days-use caution not to use a position that strains or causes pain to the affected extremity. * No driving for 24 hours. * NO SMOKING. * Avoid straining for bowel movements for 7 days. * Gentle walking on level ground is allowed. * Returning to work will depend on the type of procedure and the results. Your doctor will discuss this with you. CALL YOUR DOCTOR FOR ANY OF THE FOLLOWING: *If bleeding from the puncture site occurs- Apply gentle pressure to site with clean cloth and call your doctor or EMS. * If a knot or lump forms under the skin, increases in size, or causes pain. * If bruising appears to be worsening or moving further down your leg instead of disappearing. * Temperature above 101 F. CARE OF YOUR GROIN INCISION; * Bruising or purple discoloration of the skin near the puncture site is common. * You may shower only, no bathtub bathing for 5 days. Be careful to avoid slipping as your leg may feel stiff. * If a closure device was used on your femoral artery, please see the attached guide regarding care of the device and your leg. * REMOVE the dressing from your groin the next day after your procedure in the shower. CARE OF YOUR WRIST INCISION; * Bruising or purple discoloration of the skin near the puncture site is common. * You may shower. * DO NOT submerge wrist. * Remove dressing in 24 hours. Selene FABIAN MD February 06, 2017 9:05 am
--- NOTE | 2017-02-06 09:08 | Cardiology Discharge Summary ---
Diagnosis/Chief Complaint Date of Admission 02/06/2017 Date of Discharge 02/06/2017 Admission Diagnosis Chest pain, abnormal nuclear stress test, Diabetes Final/Discharge Diagnosis No significant CAD Chief Complaint/HPI Chief Complaint/HPI prolonged chest pain episode requiring hospitalization. abnormal nuclear stress test. Discharge Summary Procedures coronary angiography Discharge Physical Examination stable Hospital Course stable Discussion & Recommendations Discussion aggressive primary prevention measures. Follow up appt.: Dr Fabian in 10 days Dicharge Diet: ADA Diet Activity as Tolerated: Yes Home Medications Reviewed patient Home Medication Reconciliation Form Discharge Home Medications: Reviewed and agree with Discharge Medication list on patient's Discharge Instruction sheet Condition at discharge stable Instructions to patient/family follow up with Dr Fabian in 10 days Selene FABIAN MD February 06, 2017 9:08 am
[2017-02-06] MEDS ORDERED: PATIENT MAY USE OWN MEDS, ALL PO SCH (09:15)
--- NOTE | 2017-02-06 11:26 | CARDIAC CATHETERIZATION ---
DATE OF SERVICE: 02/06/2017 INDICATIONS: Prolonged episode of chest pain, abnormal nuclear stress test, diabetes. PREOPERATIVE DIAGNOSES: 1. Recurrent chest pain. 2. Abnormal nuclear stress test. 3. Diabetes. POSTOPERATIVE DIAGNOSIS: Patent epicardial coronary vessels. HISTORY: This is a 66-year-old lady who has history of diabetes. She presents with a prolonged episode of chest pain. Acute coronary syndrome was ruled out with negative serial troponin and EKG. Nuclear stress test was performed which showed mild to moderate ischemia. Coronary angiography was therefore recommended. PROCEDURE PERFORMED: 1. Coronary angiography. 2. Left heart catheterization. COMPLICATIONS: None. SPECIMENS: None. ANTICOAGULATION: IV heparin. ESTIMATED BLOOD LOSS: 10 mL. FLUOROSCOPY TIME: 8.3 minutes. FLUOROSCOPY DOSE: 858 milligrays. CONTRAST: 180 mL of Omnipaque. PROCEDURE DETAILS: The patient was brought to the hatchery laborer after informed consent was taken. All the risks and complications were explained in detail. She was prepped and draped in the usual sterile fashion. Access was gained in the right radial artery with a 6-[place] sheath. Left heart catheterization and left coronary angiography was performed with a Zay catheter. The RCA has an anterior origin, therefore we had to switch to a JR4 catheter. FINDINGS: 1. Left main: Patent. 2. LAD: This is a transapical vessel with no significant disease. 3. Left circumflex artery: Patent. 4. RCA: Patent. LEFT HEART CATHETERIZATION: LV pressure 92/11 mmHg. LVEDP is 15 mmHg. Aortic pressure 105/65 mmHg. Normal LVEF with no wall motion abnormalities. There was no gradient across the aortic valve. CONCLUSION: 1. Patent epicardial coronary vessels. 2. Continue aggressive primary prevention measures since the patient is diabetic with aspirin, statin. Job ID: [id number] DocumentID: [id number] Dictated Date: 02/06/2017 08:24:39 [employer] In[employer] Date: 02/06/2017 11:25:45 Dictated By: SARAH CANELA MD
== END 2017-02-06 12:50 | disposition home or self-care (01) ==
LOC: CATH 06:43 → SURG 08:26 → ENPENDDIS 12:00 → CATH 12:50
PROVIDERS: ATTEND Internal Medicine Interventional Cardiology
DX: R07.89 Other chest pain (principal); R94.39 Abnormal result of other cardiovascular function study; E11.9 Type 2 diabetes mellitus without complications; Z79.899 Other long term (current) drug therapy; Z79.4 Long term (current) use of insulin
CPT/HCPCS: 93458

== ENCOUNTER → 2018-04-26 | Outpatient (CLI) | payer MEDICARE, OTHER ==
[~2018-04-26] MED LIST changes: +LOSA1TAB23 PO; -LOSA1TAB70 PO
--- NOTE | 2018-04-27 08:40 | Diagnostic Imaging Report ---
Indication: Routine screening. Comparison is made with prior study from 08/03/2015 and 07/31/2014. 2-D and 3-D bilateral screening mammography was performed with CAD. Scattered fibroglandular densities are identified bilaterally. The parenchymal pattern is stable. No mass or malignant-appearing microcalcifications are seen. The axilla are unremarkable. Impression: BI-RADS category 1 No mammographic features suspicious for malignancy are identified. Dictated by: Dictated on workstation # [id number]
== END ==
LOC: RAD 14:49
PROVIDERS: ATTEND Nurse Practitioner Family
DX: Z12.31 Encounter for screening mammogram for malignant neoplasm of breast (principal)
CPT/HCPCS: 77067

== ENCOUNTER → 2020-11-27 | Outpatient (CLI) | payer MEDICARE, OTHER ==
[~2020-11-27] MED LIST changes: -DULO60CA58 PO; +DULO60CA59 PO; -GLIM4TAB PO; +GLIM4TAB5 PO; -VALA1000 PO; +VALA10007 PO
--- NOTE | 2020-11-27 12:08 | Diagnostic Imaging Report ---
Indication: Routine screening. Comparison is made with prior mammogram a 11/14/2017 08/03/2015. 2-D and 3-D bilateral screening mammography was performed with CAD. Scattered fibroglandular densities are identified bilaterally. There are benign calcifications in both breasts. No mass or malignant appearing microcalcifications are seen. Axillae are unremarkable. IMPRESSION: BI-RADS Category 2 No mammographic features suspicious for malignancy are identified. ACR BI-RADS Category 2: Benign findings. Result letter will be mailed to the patient. Note: At least 10% of breast cancer is not imaged by mammography. Dictated by: Dictated on workstation # [id number]
== END ==
LOC: RAD 11:06
PROVIDERS: ATTEND Nurse Practitioner Family
DX: Z12.31 Encounter for screening mammogram for malignant neoplasm of breast (principal)
CPT/HCPCS: 77063; 77067

== ENCOUNTER → 2021-08-03 | Outpatient (CLI) | payer MEDICARE, OTHER ==
--- NOTE | 2021-08-03 15:22 | Diagnostic Imaging Report ---
PROCEDURE: CT abdomen and pelvis without contrast. TECHNIQUE: Multiple contiguous axial images were obtained through the abdomen and pelvis without the use of intravenous contrast. Auto Exposure Controls were utilized during the CT exam to meet ALARA standards for radiation dose reduction. INDICATION: Left lower quadrant pain. Diverticulosis. Diarrhea. COMPARISON: Comparison is made to the prior study from 09/02/2016. FINDINGS: The lung bases are clear. There is no effusion. The liver and bile ducts are normal. The spleen, pancreas, and adrenals are normal. The kidneys, ureters, and bladder are normal. There is no adnexal mass. No acute bowel abnormality is seen. There is no ascites. There is no adenopathy. There is no acute bony abnormality. IMPRESSION: No acute abnormality is seen. Dictated by: Dictated on workstation # [id number]
== END ==
LOC: RAD 11:45
PROVIDERS: ATTEND Family Medicine
DX: K57.30 Diverticulosis of large intestine without perforation or abscess without bleeding (principal)
CPT/HCPCS: 74176

== ENCOUNTER 2021-09-10 10:36 | Emergency (ER) | payer MEDICARE, OTHER ==
[~2021-09-10] VITALS: Ht 172.7 cm; Wt 109.0 kg
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
[2021-09-10] MEDS ORDERED: TRIAMCINOLONE ACET (KENALOG-40) 40 MG/ML 1 ML VIAL IA ONE (11:15)
[2021-09-10] MEDS ORDERED: BUPIVACAINE 0.5% 30 ML (SENSORCAINE) VIAL INJ ONE (11:15)
--- NOTE | 2021-09-10 11:37 | Diagnostic Imaging Report ---
INDICATION: Right leg pain. TIME OF EXAM: 11:31 AM Medial compartmental degenerative changes noted with significant joint space narrowing and marginal spurring. There is spurring of the tibial spines. There is also moderate patellofemoral degenerative change. Suprapatellar fullness is noted consistent with a moderate knee joint effusion. No fracture or dislocation is identified. IMPRESSION: Degenerative changes with moderate knee joint effusion. No other significant abnormality is seen. Dictated by: Dictated on workstation # [id number]
[2021-09-10] MEDS ORDERED: ACHD5005 PO (11:44)
[2021-09-10 11:56] VITALS: BP 101/86
[2021-09-10 12:29] LABS: BODY FLUID APPEARENCE MOD CLDY; BODY FLUID COLOR YELLOW; BODY FLUID RBC COUNT 300 /uL; BODY FLUID SOURCE SYNOVIAL; BODY FLUID WBC TOTAL COUNT 6850 /uL
[2021-09-10 12:33] LABS: BF OTHER CELLS 0 %; LYMPHOCYTES,BODY FLUID 95 %
== END 2021-09-10 11:56 | disposition home or self-care (01) ==
LOC: EDUNIT# 10:36 → ER 10:38
DX: M25.461 Effusion, right knee (principal); G47.30 Sleep apnea, unspecified; I10 Essential (primary) hypertension; E11.9 Type 2 diabetes mellitus without complications; E03.9 Hypothyroidism, unspecified; F41.9 Anxiety disorder, unspecified; F32.9 Major depressive disorder, single episode, unspecified; Z79.4 Long term (current) use of insulin; Z79.890 Hormone replacement therapy; Z79.899 Other long term (current) drug therapy; Z79.82 Long term (current) use of aspirin
CPT/HCPCS: 73562; 87070; 87205; 89051; 89060

== ENCOUNTER 2022-01-21 17:13 | Emergency (ER) | payer MEDICARE, OTHER ==
[~2022-01-21] VITALS: Ht 172.7 cm; Wt 113.4 kg
[~2022-01-21 17:13] MED LIST changes: +ACHD5005 PO
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
--- NOTE | 2022-01-21 18:43 | Diagnostic Imaging Report ---
INDICATION: Fall left ankle pain. TECHNIQUE: Three views of the left ankle. CORRELATION STUDY: None. FINDINGS: Obliquely oriented fracture of the distal fibula shaft. There is minimal lateral and dorsal displacement approximately the width of the cortex present. On the lateral view, there is distortion of definition of the anterior cortex of the distal tibia. Lucency over the medial talar dome suspect for an osteochondral defect. Mild osteophyte formation and perhaps bone fragmentation at the tip of the medial malleolus, likely largely nonacute. Ankle mortise is in normal alignment. Prominent soft tissue swelling. Prominent plantar calcaneal spur. IMPRESSION: 1. Minimally displaced obliquely oriented fracture of distal left fibula. Fracture line extends into the ankle mortise. Additionally, suspect for fracture and distortion of the distal anterior tibia. 2. Likely small osteochondral defect off the medial talar dome. Dictated by: Dictated on workstation # [id number]
[2022-01-21] MEDS ORDERED: ACHD5005 PO (18:52)
[2022-01-21] MEDS ORDERED: TETANUS,DIPTH,PERTUSS P/F (BOOSTRIX) 0.5 ML VIAL IM ONE (19:00)
[2022-01-21] MEDS ORDERED: HYDROcodone/APAP 5 MG/325 MG (LORTAB) TAB PO ONE (19:00)
[2022-01-21 19:14] VITALS: BP 116/74
== END 2022-01-21 19:28 | disposition home or self-care (01) ==
LOC: EDUNIT# 17:13 → ER 17:14
DX: S82.832A Other fracture of upper and lower end of left fibula, initial encounter for closed fracture (principal); S80.811A Abrasion, right lower leg, initial encounter; S60.811A Abrasion of right wrist, initial encounter; E11.40 Type 2 diabetes mellitus with diabetic neuropathy, unspecified; Z23 Encounter for immunization; Z79.4 Long term (current) use of insulin; W01.0XXA Fall on same level from slipping, tripping and stumbling without subsequent striking against object, initial encounter
CPT/HCPCS: 29505; 73610; 90715

== ENCOUNTER → 2022-09-27 | Outpatient (CLI) | payer MEDICARE, OTHER ==
[~2022-09-27] MED LIST changes: +CLOP-31 PO; -CLOP75TA69 PO
--- NOTE | 2022-09-28 09:16 | Diagnostic Imaging Report ---
INDICATION: Routine screening. Comparison is made with prior mammogram from 11/27/2020 and 04/26/2018. 2-D and 3-D bilateral screening mammography was performed with CAD. CAD is utilized. The current study was also evaluated with a Computer Aided Detection (CAD) system. Scattered fibroglandular densities are identified bilaterally. The parenchymal pattern is stable. No mass or malignant-appearing microcalcifications are seen. Axillae are unremarkable. IMPRESSION: BI-RADS Category 1 No mammographic features suspicious for malignancy are identified. ACR BI-RADS Category 1: Negative. Result letter will be mailed to the patient. Note: At least 10% of breast cancer is not imaged by mammography. Dictated by: Dictated on workstation # [id number]
== END ==
LOC: RAD 10:37
PROVIDERS: ATTEND Family Medicine
DX: Z12.31 Encounter for screening mammogram for malignant neoplasm of breast (principal)
CPT/HCPCS: 77063; 77067